=== PATIENT | female | born 1960 | race Caucasian/White ===

== ENCOUNTER 2018-01-25 01:32 | Emergency (ER) | payer OTHER ==
[~2018-01-25] VITALS: Ht 165.1 cm; Wt 64.0 kg
[2018-01-25] MEDS ORDERED: ACETAMINOPHEN 325MG TABLET PO STA (02:04)
[2018-01-25 02:33] LABS: INR 1.2; PROTHROMBIN TIME 12.7 sec (9.4-11.6)
[2018-01-25 02:34] LABS: CHLORIDE 104 mEq/L (98-107)
[2018-01-25 02:44] LABS: CLARITY URINE CLOUDY (CLEAR); COLOR URINE YELLOW (YELLOW); KETONES URINE TRACE (NEGATIVE); LEUKOCYTE ESTERASE URINE 1+ (NEGATIVE); NITRITE URINE POSITIVE (NEGATIVE); OCCULT BLOOD URINE 1+ (NEGATIVE); PROTEIN URINE 1+ (NEGATIVE); SPECIFIC GRAVITY URINE 1.014 (1.005-1.030)
[2018-01-25 03:15] LABS: BASOPHILS % 0.2 % (0.0-2.0); EOSINOPHILS % 0.1 % (0.0-5.0); HEMATOCRIT. 37.3 % (36.0-48.0); HEMOGLOBIN. 12.7 g/dL (12.0-16.0); MEAN CORPUSCULAR HEMOGLOBIN 29.7 pg (28.0-32.0); MEAN PLATELET VOLUME 7.7 fl (7.4-10.4); MONOCYTES % 2.5 % (2.0-8.0); NEUTROPHILS % 89.2 % (40.0-76.0); PLATELET 214 x1000/uL (130-400); RED BLOOD CELL COUNT 4.29 mill/uL (4.2-5.4); RED CELL DISTRIBUTION WIDTH 13.4 % (11.6-14.6)
[2018-01-25] MEDS ORDERED: CEFTRIAXONE 2 G PREMIX 50 ML IV SCH (04:00)
[2018-01-25 05:41] VITALS: BP 129/70
== END 2018-01-25 05:43 | disposition home or self-care (01) ==
LOC: ER 01:32 → CANBEDREQ 05:55
DX: N12 Tubulo-interstitial nephritis, not specified as acute or chronic (principal); I10 Essential (primary) hypertension
CPT/HCPCS: 36415; 71045; 80053; 81003; 83605; 85025; 85610; 87040; 87077; 87086; 87186; 87804; 93005; 96365; 99285; J0696; Z7610

== ENCOUNTER 2018-04-03 22:38 | Emergency (ER) | payer BC, OTHER ==
[~2018-04-03] VITALS: Ht 157.5 cm; Wt 68.0 kg
[2018-04-04] MEDS ORDERED: SODIUM CHLORIDE 0.9% 1,000 ML IV ONE (03:30)
[2018-04-04] MEDS ORDERED: ONDANSETRON HCL 4MG/2ML VIAL IV STA (03:30)
[2018-04-04 04:22] LABS: CLARITY URINE CLEAR (CLEAR); COLOR URINE YELLOW (YELLOW); KETONES URINE NEGATIVE (NEGATIVE); LEUKOCYTE ESTERASE URINE 3+ (NEGATIVE); NITRITE URINE NEGATIVE (NEGATIVE); OCCULT BLOOD URINE TRACE (NEGATIVE); PROTEIN URINE NEGATIVE (NEGATIVE); SPECIFIC GRAVITY URINE 1.006 (1.005-1.030); UROBILINOGEN URINE 0.2 E.U./dL (0.2-1.0)
[2018-04-04 05:23] LABS: BASOPHILS % 0.2 % (0.0-2.0); HEMATOCRIT. 36.5 % (36.0-48.0); HEMOGLOBIN. 12.1 g/dL (12.0-16.0); LYMPHOCYTES % 11.3 % (20.0-50.0); MEAN CORPUSCULAR HEMOGLOBIN 29.3 pg (28.0-32.0); MEAN CORPUSCULAR VOLUME 88.4 fL (81.0-99.0); MEAN PLATELET VOLUME 7.8 fl (7.4-10.4); MONOCYTES % 8.2 % (2.0-8.0); NEUTROPHILS % 80.3 % (40.0-76.0); PLATELET 228 x1000/uL (130-400); RED BLOOD CELL COUNT 4.13 mill/uL (4.2-5.4); RED CELL DISTRIBUTION WIDTH 14.6 % (11.6-14.6)
[2018-04-04 05:26] LABS: CHLORIDE 111 mEq/L (98-107); INR 1.1; PROTHROMBIN TIME 11.7 sec (9.4-11.6)
[2018-04-04 06:41] VITALS: BP 106/58
== END 2018-04-04 06:42 | disposition home or self-care (01) ==
LOC: ER 22:38
DX: N39.0 Urinary tract infection, site not specified (principal); R11.2 Nausea with vomiting, unspecified; R74.0 Nonspecific elevation of levels of transaminase and lactic acid dehydrogenase [LDH]; I10 Essential (primary) hypertension; Z90.49 Acquired absence of other specified parts of digestive tract; Z98.890 Other specified postprocedural states
CPT/HCPCS: 36415; 71045; 80053; 81003; 81025; 83690; 84484; 85025; 85610; 93005; 96361; 96374; 99285; J2405; J7030; Z7610